=== PATIENT | female | born 1950 | race Caucasian/White ===

== ENCOUNTER 2019-08-31 10:53 | Outpatient (CLI) | payer MEDICARE ==
--- NOTE | 2019-08-31 16:43 | RAD ---
LEFT FOOT THREE VIEWS: 08/31/19 An old well healed fracture of the fifth metatarsal shaft is noted. No recent fractures are seen. The bones and joints were unremarkable for age. There may have been old trauma to the medial malleolus. IMPRESSION: No acute bony finding. POS: HOME
== END 2019-08-31 10:54 | disposition home or self-care (01) ==
LOC: BURRAD 10:53
PROVIDERS: ATTEND Physician Assistant
DX: M79.89 Other specified soft tissue disorders (principal); W18.42XA Slipping, tripping and stumbling without falling due to stepping into hole or opening, initial encounter

== ENCOUNTER 2021-09-25 10:03 | Inpatient (IN) | payer MEDICARE ==
[2021-09-26] MEDS ORDERED: Bisacodyl 10 MG SUPP PR PRN (20:42)
[2021-09-26] MEDS ORDERED: Acetaminophen 325 MG TAB PO PRN ×2 (20:42→20:47)
[2021-09-26] MEDS ORDERED: Bisacodyl 5 MG TAB PO PRN (20:42)
[2021-09-26] MEDS: Cyclobenzaprine 10 MG TAB PO PRN (20:54)
[2021-09-26] MEDS: traMADol HCl 50 MG TAB PO SCH (20:55)
[2021-09-26] MEDS: Acetaminophen 500 MG TAB PO SCH (20:56)
[2021-09-26] MEDS: Aspirin 81 mg Enteric Coated Tablet PO SCH (20:57)
[2021-09-27 02:07] VITALS: BMI 23.4
[2021-09-27] MEDS: Acetaminophen 500 MG TAB PO SCH ×4 (02:40→21:55)
[2021-09-27] MEDS: Aspirin 81 mg Enteric Coated Tablet PO SCH ×2 (08:02→21:55)
[2021-09-27] MEDS: Multivit, Therapeutic 1 TAB PO SCH (08:02)
[2021-09-27] MEDS: traMADol HCl 50 MG TAB PO SCH ×2 (08:02→21:54)
[2021-09-27] MEDS: Loratadine 10 MG TAB PO SCH (08:02)
[2021-09-27] MEDS: Fluticasone Propionate Nasal Spray 16 gm Bottle NASAL SCH (08:03)
[2021-09-27] MEDS: Cyclobenzaprine 10 MG TAB PO PRN (13:54)
[2021-09-28] MEDS: Acetaminophen 500 MG TAB PO SCH ×4 (03:11→20:12)
[2021-09-28] MEDS: Fluticasone Propionate Nasal Spray 16 gm Bottle NASAL SCH (09:00)
[2021-09-28] MEDS: Loratadine 10 MG TAB PO SCH (09:14)
[2021-09-28] MEDS: Aspirin 81 mg Enteric Coated Tablet PO SCH ×2 (09:15→20:13)
[2021-09-28] MEDS: Multivit, Therapeutic 1 TAB PO SCH (09:15)
[2021-09-28] MEDS: traMADol HCl 50 MG TAB PO SCH ×2 (09:15→20:13)
[2021-09-29] MEDS: Acetaminophen 500 MG TAB PO SCH ×4 (03:42→21:06)
[2021-09-29] MEDS: traMADol HCl 50 MG TAB PO SCH ×2 (09:18→21:07)
[2021-09-29] MEDS: Loratadine 10 MG TAB PO SCH (09:19)
[2021-09-29] MEDS: Multivit, Therapeutic 1 TAB PO SCH (09:19)
[2021-09-29] MEDS: Aspirin 81 mg Enteric Coated Tablet PO SCH ×2 (09:19→21:07)
[2021-09-29] MEDS: Fluticasone Propionate Nasal Spray 16 gm Bottle NASAL SCH (09:20)
[2021-09-29] MEDS: Cyclobenzaprine 10 MG TAB PO PRN (18:00)
[2021-09-30] MEDS: Acetaminophen 500 MG TAB PO SCH ×4 (03:24→20:58)
[2021-09-30] MEDS: Aspirin 81 mg Enteric Coated Tablet PO SCH ×2 (09:16→21:00)
[2021-09-30] MEDS: Loratadine 10 MG TAB PO SCH (09:16)
[2021-09-30] MEDS: Multivit, Therapeutic 1 TAB PO SCH (09:16)
[2021-09-30] MEDS: traMADol HCl 50 MG TAB PO SCH ×2 (09:17→20:57)
[2021-09-30] MEDS: Fluticasone Propionate Nasal Spray 16 gm Bottle NASAL SCH (09:18)
[2021-10-01] MEDS: Acetaminophen 500 MG TAB PO SCH ×4 (03:02→20:50)
[2021-10-01] MEDS: Aspirin 81 mg Enteric Coated Tablet PO SCH ×2 (08:16→20:49)
[2021-10-01] MEDS: traMADol HCl 50 MG TAB PO SCH ×2 (08:16→20:49)
[2021-10-01] MEDS: Multivit, Therapeutic 1 TAB PO SCH (08:17)
[2021-10-01] MEDS: Fluticasone Propionate Nasal Spray 16 gm Bottle NASAL SCH (08:18)
[2021-10-01] MEDS: Loratadine 10 MG TAB PO SCH (08:18)
[2021-10-01] MEDS ORDERED: Loperamide HCl 2 MG CAP PO PRN (15:54)
[2021-10-01] MEDS ORDERED: Loperamide HCl 2 MG CAP PO SCH (16:30)
[2021-10-02] MEDS: Acetaminophen 500 MG TAB PO SCH ×4 (03:20→20:54)
[2021-10-02] MEDS: Aspirin 81 mg Enteric Coated Tablet PO SCH ×2 (08:28→20:53)
[2021-10-02] MEDS: Loratadine 10 MG TAB PO SCH (08:28)
[2021-10-02] MEDS: traMADol HCl 50 MG TAB PO SCH ×2 (08:28→20:53)
[2021-10-02] MEDS: Multivit, Therapeutic 1 TAB PO SCH (08:28)
[2021-10-02] MEDS: Fluticasone Propionate Nasal Spray 16 gm Bottle NASAL SCH (08:29)
[2021-10-03] MEDS: Acetaminophen 500 MG TAB PO SCH ×4 (03:25→20:47)
[2021-10-03] MEDS: traMADol HCl 50 MG TAB PO SCH ×2 (08:07→20:46)
[2021-10-03] MEDS: Fluticasone Propionate Nasal Spray 16 gm Bottle NASAL SCH (08:07)
[2021-10-03] MEDS: Multivit, Therapeutic 1 TAB PO SCH (08:07)
[2021-10-03] MEDS: Loratadine 10 MG TAB PO SCH (08:07)
[2021-10-03] MEDS: Aspirin 81 mg Enteric Coated Tablet PO SCH ×2 (08:07→20:46)
[2021-10-04] MEDS: Acetaminophen 500 MG TAB PO SCH ×2 (03:18→08:55)
[2021-10-04 05:22] VITALS: BP 118/74; TEMP 97.8
[2021-10-04] MEDS: Aspirin 81 mg Enteric Coated Tablet PO SCH (08:55)
[2021-10-04] MEDS: Loratadine 10 MG TAB PO SCH (08:55)
[2021-10-04] MEDS: Multivit, Therapeutic 1 TAB PO SCH (08:56)
[2021-10-04] MEDS: Fluticasone Propionate Nasal Spray 16 gm Bottle NASAL SCH (08:56)
[2021-10-04] MEDS ORDERED: traMADol HCl 50 MG TAB PO SCH (09:00)
[2021-10-04] MEDS: traMADol HCl 50 MG TAB PO SCH (10:08)
== END 2021-10-04 14:20 | disposition home or self-care (01) | DRG 561 ==
LOC: BURMED 09-26 18:18
PROVIDERS: ADMIT Family Medicine; ATTEND Family Medicine
DX: S72.002D Fracture of unspecified part of neck of left femur, subsequent encounter for closed fracture with routine healing (principal); Z98.51 Tubal ligation status
CPT/HCPCS: 71045

== ENCOUNTER 2023-10-29 18:46 | Emergency (ER) | payer MEDICARE ==
[2023-10-29] MEDS ORDERED: Ketorolac Tromethamine 30 MG (1 mL) VIAL ONE (19:48)
[2023-10-29 20:07] LABS: #Basophils 0.1 thou/uL (0.0-0.2); #Eosinphils 0.3 thou/uL (0.0-0.7); #Lymphocytes 1.1 thou/uL (1.20-3.40); #Monocytes 0.4 thou/uL (0.11-0.59); #Neutrophils 15.2 thou/uL (1.40-6.50); %Basophils 0.5 % (0.0-1.0); %Eosinophils 1.9 % (0.0-10.0); %Lymphocytes 6.3 % (21.0-51.0); %Monocytes 2.2 % (0.0-10.0); %Neutrophils 89.1 % (42.0-75.0); Hematocrit 31.2 % (36.0-47.0); Hemoglobin 10.3 g/dL (12.0-16.0); Mean Corpuscular Hemoglobin 29.1 pg (27.0-31.0); Mean Corpuscular Volume 88.3 fl (78.0-98.0); Mean Platelet Volume 6.7 fL (7.4-10.4); Platelet Count 477 10x3/uL (130-400); RBC Distribution Width 11.3 % (11.5-14.5); Red Blood Cell (RBC) Count 3.54 mill/uL (4.20-5.40); White Blood Cell (WBC) Count 17.1 10x3/uL (4.8-10.8)
[2023-10-29 20:23] LABS: ALT (SGPT) 15 U/L (8-55); AST (SGOT) 15 U/L (5-34); Albumin 3.5 g/dL (3.4-4.8); Alkaline Phosphatase 126 U/L (40-110); Anion Gap 20 mmol/L (10-20); BUN (Urea Nitrogen) 53 mg/dL (9.8-20.1); Bilirubin, Total 0.3 mg/dL (0.2-1.2); Calc. Creatinine Clearance 0 mL/min (70-130); Carbon Dioxide 27 mmol/L (23-31); Chloride 94 mmol/L (98-107); Estimated GFR 27; Globulin 3.6 g/dL (2.4-3.5); Glucose 101 mg/dL (83-110); Potassium 2.7 mmol/L (3.5-5.1); Protein, Total 7.1 g/dL (5.8-8.1); Sodium 138 mmol/L (136-145)
[2023-10-29 20:25] LABS: Calcium 15.6 mg/dL (7.8-10.44)
[2023-10-29] MEDS ORDERED: Potassium Chloride 20 MEQ TAB ONE (20:38)
[2023-10-29] MEDS ORDERED: traMADol HCl 50 MG TAB ONE (21:08)
== END 2023-10-29 21:19 | disposition home or self-care (01) ==
LOC: BURERS 18:46
DX: S22.069A Unspecified fracture of T7-T8 vertebra, initial encounter for closed fracture (principal); E83.52 Hypercalcemia; E87.6 Hypokalemia; C80.1 Malignant (primary) neoplasm, unspecified; V84.7XXA Person on outside of special agricultural vehicle injured in nontraffic accident, initial encounter
CPT/HCPCS: 71250; 80053; 85025; 96361; 96374; J1885